=== PATIENT | male | born 1950 ===

== ENCOUNTER 2020-11-03 07:14 | Day surgery (SDC) | payer OTHER | END 2020-11-03 13:35 | disposition home or self-care (01) | LOC: AMB-ENDOS 07:14 | PROVIDERS: ATTEND Surgery | DX: K62.89 Other specified diseases of anus and rectum (principal); Z20.822 Contact with and (suspected) exposure to COVID-19 ==

== ENCOUNTER 2022-02-23 11:17 | Inpatient (IN) | payer OTHER ==
[~2022-02-23] VITALS: Ht 167.6 cm; Wt 0.5 kg
[2022-03-04] MEDS ORDERED: CILOSTAZOL50 MG (13:27)
[2022-03-04] MEDS ORDERED: SIMVASTATIN20 MG (13:27)
[2022-03-04] MEDS ORDERED: GABAPENTIN300 M2 (13:28)
[2022-03-04] MEDS ORDERED: APREPITANT1 EACH (13:28)
[2022-03-06] MEDS ORDERED: TAMS0.4C PO (11:14)
[2022-03-06] MEDS ORDERED: LEVSIN/SL0.125 MG SL (11:15)
[2022-03-06] MEDS ORDERED: PERCOCET 5-3251 EACH PO (11:15)
== END 2022-03-06 13:30 | disposition home or self-care (01) | DRG 331 ==
LOC: ADM 12:15 → EDSTATUS 02-28 12:15 → SURG 02-28 12:15 → CIR.AMB 02-28 12:15 → SURG 02-28 15:45 → O/R 03-03 09:44 → SURG 03-03 12:15
PROVIDERS: ADMIT Surgery; ATTEND Surgery
PROC: 0DTP4ZZ Resection of Rectum, Percutaneous Endoscopic Approach (ICD-10-PCS; 2022-03-03)
PROC: 0DTQ4ZZ Resection of Anus, Percutaneous Endoscopic Approach (ICD-10-PCS; 2022-03-03)
PROC: 07BC4ZZ Excision of Pelvis Lymphatic, Percutaneous Endoscopic Approach (ICD-10-PCS; 2022-03-03)
PROC: 0D1M4Z4 Bypass Descending Colon to Cutaneous, Percutaneous Endoscopic Approach (ICD-10-PCS; 2022-03-03)
PROC: 0DTN4ZZ Resection of Sigmoid Colon, Percutaneous Endoscopic Approach (ICD-10-PCS; principal; 2022-03-03 17:45)
DX: C20 Malignant neoplasm of rectum (principal); R59.0 Localized enlarged lymph nodes; R33.8 Other retention of urine; I10 Essential (primary) hypertension; Z20.822 Contact with and (suspected) exposure to COVID-19; Z93.3 Colostomy status